=== PATIENT | male | born 1970 | race Two or more races ===

== ENCOUNTER 2022-01-19 09:47 | Emergency (ER) | payer OTHER ==
[~2022-01-19] VITALS: Ht 167.6 cm; Wt 77.1 kg
--- NOTE | 2022-01-19 09:58 | NUR ---
To ER bed 11, BIBA [facility] 860 Escorted by [employer] Officer Cyndie [id number] for clearance OTB "left hand pain", aaox3, breathing even and non labored, awaiting md coley
[2022-01-19] MEDS ORDERED: HYDROCODONE/APAP 5/325MG TABLET PO ONE (12:00)
[2022-01-19] MEDS ORDERED: HYDROCODONE/APAP 5/325MG TABLET ONE (12:01)
--- NOTE | 2022-01-19 12:23 | NUR ---
EMT Lauro applied volar splint to affected area left arm CMS WNL after. Cosmo discharge to [employer] custody Patient discharged in stable condition. [facility] and verbal [facility]
[2022-01-19 12:25] VITALS: BP 110/70
--- NOTE | 2022-01-19 12:26 | NUR ---
Patient discharged to [facility] accompanied by [employer] in stable condition. Written and verbal after care instructions given. Patient verbalizes understanding of instruction.
== END 2022-01-19 12:26 ==
LOC: ER 09:54
DX: S62.355A Nondisplaced fracture of shaft of fourth metacarpal bone, left hand, initial encounter for closed fracture (principal); S06.5X0A Traumatic subdural hemorrhage without loss of consciousness, initial encounter; S01.81XA Laceration without foreign body of other part of head, initial encounter; I10 Essential (primary) hypertension; Z59.00 Homelessness unspecified; W22.8XXA Striking against or struck by other objects, initial encounter; Y93.89 Activity, other specified; Y92.89 Other specified places as the place of occurrence of the external cause; Y99.8 Other external cause status
CPT/HCPCS: 70450-TC; 70486-TC; 72125-TC; 73110; 73130-TC